=== PATIENT | male | born 1990 | race Two or more races ===

== ENCOUNTER 2022-09-11 20:18 | Emergency (ER) | payer BC, OTHER ==
[~2022-09-11] VITALS: Ht 172.7 cm; Wt 84.1 kg
[2022-09-12] MEDS ORDERED: NEOMYCIN-BACITRACIN-POLYM UNITDOSE PKG TOP OINT TOP ONE ×2 (00:15→01:30)
[2022-09-12] MEDS ORDERED: TETANUS-DIPTH-ACEL PERTUSSIS 0.5ML SYR Tdap IM ONE (00:15)
[2022-09-12] MEDS ORDERED: HYDROcodone-ACET 5/325MG TAB PO ONE (00:15)
[2022-09-12] MEDS ORDERED: LIDOCAINE W/ EPINEPHRINE 2% INJ 20ML VIAL ONE (01:26)
[2022-09-12] MEDS ORDERED: LIDOCAINE W/ EPINEPHRINE 2% INJ 20ML VIAL IJ ONE (01:30)
[2022-09-12] MEDS ORDERED: LIDOCAINE W/ EPINEPHRINE 1% 20ML VIAL ID ONE (01:30)
[2022-09-12] MEDS ORDERED: HYDR-4902 PO (01:57)
[2022-09-12] MEDS ORDERED: CYCL-611 PO (01:57)
[2022-09-12] MEDS ORDERED: IBUP1TAB5 PO (01:57)
[2022-09-12 02:39] LABS: Urine Bacteria FEW /hpf (None Seen); Urine Blood Negative /uL (Negative); Urine Hyaline Cast FEW /lpf (0 - 2); Urine Mucus FEW (None Seen); Urine WBC 1 /hpf (0 - 3)
[2022-09-12 03:10] VITALS: BP 99/66
== END 2022-09-12 03:15 | disposition home or self-care (01) ==
LOC: ER 20:18
DX: S42.002A Fracture of unspecified part of left clavicle, initial encounter for closed fracture (principal); S01.81XA Laceration without foreign body of other part of head, initial encounter; S30.811A Abrasion of abdominal wall, initial encounter; M25.552 Pain in left hip; Z79.899 Other long term (current) drug therapy; V86.56XA Driver of dirt bike or motor/cross bike injured in nontraffic accident, initial encounter; Y93.89 Activity, other specified; Y92.89 Other specified places as the place of occurrence of the external cause; Y99.8 Other external cause status
CPT/HCPCS: 12013; 70450; 72100; 72125; 73000; 73502; 81001; 90471; 90715